=== PATIENT | male | born 1945 | race Caucasian/White ===

== ENCOUNTER 2018-06-13 12:45 | Emergency (ER) | payer MEDICARE, OTHER ==
[2018-06-13] MEDS ORDERED: MINERAL OIL 30 ML UDCUP PR ONE (13:35)
--- NOTE | 2018-06-13 13:38 | ER Document Report ---
ED Medical Screen (RME) - General Chief Complaint: Abdominal Pain Stated Complaint: ABDOMINAL PAIN Time Seen by Provider: 06/13/18 13:35 Notes: RAPID MEDICAL EVALUATION DISCLOSURE I have seen this patient as part of a Rapid Medical Evaluation and, if applicable, placed any initially appropriate orders. The patient will be seen and fully evaluated, including a full history and physical exam, by a provider (in Main ED or Fast Track) when a room becomes available. 72-year-old male here with complaints of constipation over the past 2 weeks. He states that he has been having bowel movements however they are small hard stools and he is now having some pain at his rectum. He has not tried taking any [id number] stool softeners. He does not have any abdominal pain nausea vomiting fevers chills. He does not normally get constipated however he does report having to strain on a fairly frequent basis and that this is usual for him. EXAM No abdominal TTP No low back TTP TRAVEL OUTSIDE OF THE [place] IN LAST 30 DAYS: No - Related Data Allergies/Adverse Reactions: No Known Allergies Allergy (Verified 06/13/18 12:46) Past Medical History - Immunizations Immunizations up to date: Yes Hx Diphtheria, Pertussis, Tetanus Vaccination: No Physical Exam - Vital signs Vitals: Temp Pulse Resp BP Pulse Ox 97.5 F 65 16 152/57 H 100 06/13/18 13:19 06/13/18 13:19 06/13/18 13:19 06/13/18 13:19 06/13/18 13:19 Course - Vital Signs Vital signs: Temp Pulse Resp BP Pulse Ox 97.5 F 65 16 152/57 H 100 06/13/18 13:19 06/13/18 13:19 06/13/18 13:19 06/13/18 13:19 06/13/18 13:19
[2018-06-13] MEDS ORDERED: MAGNESIUM CITRATE 296 ML BOTTLE PO ONE (14:23)
--- NOTE | 2018-06-13 14:23 | ER Document Report ---
ED General - General Chief Complaint: Abdominal Pain Stated Complaint: ABDOMINAL PAIN Time Seen by Provider: 06/13/18 13:35 TRAVEL OUTSIDE OF THE [place] IN LAST 30 DAYS: No - HPI Patient complains to provider of: 72-year-old man that presents for evaluation of difficulty moving his bowel Onset: Other - Over the last 2 days this gentleman has had difficulty in moving his bowels, he has had a couple of small pebble-like stools passed in the last day but feels as if he is unable to move a large bowel movement which seems stuck. Is not take anything to try and help with this, is never suffered from constipation in the past. Nothing is made it better or worse. Denies any fevers or chills lightheadedness chest pain diarrhea or dysuria. - Related Data Allergies/Adverse Reactions: No Known Allergies Allergy (Verified 06/13/18 12:46) Past Medical History - General Information source: Patient - Social History Smoking Status: Never Smoker Chew tobacco use (# tins/day): No Frequency of alcohol use: None Drug Abuse: None Family History: Reviewed & Not Pertinent Patient has suicidal ideation: No Patient has homicidal ideation: No Renal/ Medical History: Denies: Hx Peritoneal Dialysis - Immunizations Immunizations up to date: Yes Hx Diphtheria, Pertussis, Tetanus Vaccination: No Review of Systems - Review of Systems -: Yes All other systems reviewed and negative Physical Exam - Vital signs Vitals: Temp Pulse Resp BP Pulse Ox 97.5 F 65 16 152/57 H 100 06/13/18 13:19 06/13/18 13:19 06/13/18 13:19 06/13/18 13:19 06/13/18 13:19 Interpretation: Normal - General General appearance: Appears well, Alert - HEENT Head: Normocephalic, Atraumatic Eyes: Normal Pupils: PERRL - Respiratory Respiratory status: No respiratory distress Chest status: Nontender Breath sounds: Normal Chest palpation: Normal - Cardiovascular Rhythm: Regular Heart sounds: Normal auscultation Murmur: No - Abdominal Inspection: Normal Distension: No distension Bowel sounds: Normal Tenderness: Nontender Organomegaly: No organomegaly - Rectal Tenderness: No Stool: Other - hard stool in the vault no appreciable fecaliths, no appreciable blood or tenderness, during rectal examination stool was extracted - Back Back: Normal, Nontender - Extremities General upper extremity: Normal inspection, Nontender, Normal color, Normal ROM, Normal temperature General lower extremity: Normal inspection, Nontender, Normal color, Normal ROM, Normal temperature, Normal weight bearing. No: Jimmie's sign - Neurological Neuro grossly intact: Yes Cognition: Normal Orientation: AAOx4 [place] Coma Scale Eye Opening: Spontaneous [place] Coma Scale Verbal: Oriented [place] Coma Scale Motor: Obeys Commands [place] Coma Scale Total: 15 Speech: Normal Motor strength normal: LUE, RUE, LLE, RLE Sensory: Normal - Psychological Associated symptoms: Normal affect, Normal mood - Skin Skin Temperature: Warm Skin Moisture: Dry Skin Color: Normal Course - Re-evaluation Re-evalutation: 06/13/18 15:19 72-year-old constipated man. On examination he obviously has a fecal impaction. Digital rectal examination was utilized and stool was aggressively broken as well as extracted. Following extraction of fecal material gentleman was offered an enema, he declined the enema at this time will try move his bowels at home with the use of magnesium citrate. He will also use a stool softener moving forward to prevent return of this. - Vital Signs Vital signs: Temp Pulse Resp BP Pulse Ox 97.5 F 65 16 152/57 H 100 06/13/18 13:19 06/13/18 13:19 06/13/18 13:32 06/13/18 13:19 06/13/18 13:19 Discharge - Discharge Clinical Impression: Fecal impaction Constipation Qualifiers: Constipation type: unspecified constipation type Qualified Code(s): K59.00 - Constipation, unspecified Condition: Good Disposition: HOME, SELF-CARE Instructions: Abdominal Pain ([facility]), Laxative ([facility]), Constipation ([facility]) Additional Instructions: You were seen today in the emergency department for your constipation. You had a disimpaction performed. You have been given a laxative. Drink half of the bottle of laxative. If you do not have a bowel movement in 2 hours take the other half of the bottle. Return in case you have any fevers or chills or worsening abdominal pain. You should start taking a stool softener called MiraLAX 1 packet/day and make sure you are drinking plenty of water. Prescriptions: Magnesium Citrate [Citrate of Magnesia 296 ml Bottle] 296 ml PO DAILY #1 bottle Polyethylene Glycol 3350 [Miralax Powder 17 gm/Packet] 1 packet PO DAILY #1 pkg
[2018-06-13 15:03] VITALS: BP 132/57
== END 2018-06-13 15:17 | disposition home or self-care (01) ==
LOC: ER 12:45
DX: K59.00 Constipation, unspecified (principal)
CPT/HCPCS: 99283; J3490

== ENCOUNTER 2019-05-02 09:28 | Emergency (ER) | payer MEDICARE, OTHER ==
[2019-05-02] MEDS ORDERED: DOCUSATE SODIUM 100 MG CAPSULE BTH_EAR ONE (09:56)
--- NOTE | 2019-05-02 09:58 | ER Document Report ---
ED ENT - General Chief Complaint: Ear Pain Stated Complaint: EAR PAIN Time Seen by Provider: 05/02/19 09:50 Primary Care Provider: JOHNNY NOBLE MD [ACTIVE STAFF] - Follow up as needed Mode of Arrival: Ambulatory Information source: Patient Notes: 73-year-old male presents the ED for ringing in his ears. He states he does have mildly decreased hearing last year. He states the ringing in his ear has been for a year. He does not have any pain he does not have any other ailments he wanted his ears examined and if possible cleaned. Patient is alert oriented respirations regular and unlabored speaking in full sentences. He states he does not have a primary care doctor and does not have any medical history. TRAVEL OUTSIDE OF THE [place] IN LAST 30 DAYS: No - HPI Patient complains to provider of: Ear problem Onset: Other - 1 year Onset/Duration: Persistent Quality of pain: Other - Ringing in the ear Severity: None Pain Level: Denies Location of pain: Ears Associated symptoms: Other - Ringing in the ears Similar symptoms previously: Yes Recently seen / treated by doctor: No - Related Data Allergies/Adverse Reactions: No Known Allergies Allergy (Verified 05/02/19 09:44) Past Medical History - General Information source: Patient - Social History Smoking Status: Never Smoker Chew tobacco use (# tins/day): No Frequency of alcohol use: None Drug Abuse: None Lives with: Family Family History: Reviewed & Not Pertinent Patient has suicidal ideation: No Patient has homicidal ideation: No - Past Medical History Cardiac Medical History: Reports: Hx Hypertension Pulmonary Medical History: Reports: None EENT Medical History: Reports: None Neurological Medical History: Reports: None Endocrine Medical History: Reports: None Renal/ Medical History: Reports: None Malignancy Medical History: Reports Hx Skin Cancer GI Medical History: Reports: None Musculoskeletal Medical History: Reports Hx Arthritis Skin Medical History: Reports None Psychiatric Medical History: Reports: None Traumatic Medical History: Reports: None Infectious Medical History: Reports: None Past Surgical History: Reports: Other - skin cancer - Immunizations Immunizations up to date: Yes Hx Diphtheria, Pertussis, Tetanus Vaccination: No Review of Systems - Review of Systems Constitutional: No symptoms reported EENT: No symptoms reported. denies: Ear pain - Ringing in the ear Cardiovascular: No symptoms reported Respiratory: No symptoms reported Gastrointestinal: No symptoms reported Genitourinary: No symptoms reported Male Genitourinary: No symptoms reported Musculoskeletal: No symptoms reported Skin: No symptoms reported Hematologic/Lymphatic: No symptoms reported Neurological/Psychological: No symptoms reported -: Yes All other systems reviewed and negative Physical Exam - Vital signs Vitals: Temp Pulse Resp BP Pulse Ox 97.5 F 66 16 150/69 H 99 05/02/19 09:30 05/02/19 09:30 05/02/19 09:30 05/02/19 09:30 05/02/19 09:30 Interpretation: Normal - General General appearance: Appears well, Alert - HEENT Head: Normocephalic, Atraumatic Eyes: Normal Pupils: PERRL Ears: Normal External canal: Cerumen impaction Sinus: Normal Nasal: Normal Mouth/Lips: Normal Mucous membranes: Normal Pharynx: Normal Neck: Normal - Respiratory Respiratory status: No respiratory distress Chest status: Nontender Breath sounds: Normal Chest palpation: Normal - Cardiovascular Rhythm: Regular Heart sounds: Normal auscultation Murmur: No - Abdominal Inspection: Normal Distension: No distension Bowel sounds: Normal Tenderness: Nontender Organomegaly: No organomegaly - Back Back: Normal, Nontender - Extremities General upper extremity: Normal inspection, Nontender, Normal color, Normal ROM, Normal temperature General lower extremity: Normal inspection, Nontender, Normal color, Normal ROM, Normal temperature, Normal weight bearing. No: Jimmie's sign - Neurological Neuro grossly intact: Yes Cognition: Normal Orientation: AAOx4 Stephany Coma Scale Eye Opening: Spontaneous [place] Coma Scale Verbal: Oriented [place] Coma Scale Motor: Obeys Commands [place] Coma Scale Total: 15 Speech: Normal Motor strength normal: LUE, RUE, LLE, RLE Sensory: Normal - Psychological Associated symptoms: Normal affect, Normal mood - Skin Skin Temperature: Warm Skin Moisture: Dry Skin Color: Normal Course - Vital Signs Vital signs: Temp Pulse Resp BP Pulse Ox 97.5 F 66 16 150/69 H 99 05/02/19 09:30 05/02/19 09:30 05/02/19 09:30 05/02/19 09:30 05/02/19 09:30 Procedures - Additional Procedures other Time performed: 11:29 Additional Procedures: Other - Cerumen disimpaction bilateral Notes: 05/02/19 11:30 200 mg Colace was instilled in each ear. It was left standing for 15 minutes. The ear was then irrigated with one half peroxide one warm water and total ear was clear then the second layer was completed. Ears are no longer impacted. Patient states he still has some ringing in the ears. Patient was instructed to follow-up with ENT and given the name of an ENT to follow-up with. Discharge - Discharge Clinical Impression: Impacted cerumen of both ears Condition: Stable Disposition: HOME, SELF-CARE Additional Instructions: Cerumen Impaction The physician found a severe buildup of earwax in your ear canal, called a cerumen impaction. A large plug of wax can cause earache, decreased hearing, or itching. It can even lead to infection of the outer ear. An impaction of earwax can be removed by the physician using special instruments, or can be irrigated out using a stream of water (often a little of both is required). Some less severe impactions are removed using ear drops that dissolve wax. In the future, don't get soap in your ear canal. Soap doesn't remove wax -- it simply hardens it in place. Don't use cotton swabs. These just push the wax into large clumps, where it doesn't flow out normally. Dust and smoke also contribute to wax buildup. Earwax softening drops are available without prescription, and can be used periodically. Contact the doctor if you develop decreased hearing, earache, drainage from the ear, or severe headache. Use [id number] earwax spool cleaner to clean your ears as needed on a regular basis so you do not get an impaction. FOLLOW-UP CARE: If you have been referred to a physician for follow-up care, call the physicians office for an appointment as you were instructed or within the next two days. If you experience worsening or a significant change in your symptoms, notify the physician immediately or return to the Emergency Department at any time for re-evaluation. Forms: Elevated Blood Pressure Referrals: JOHNNY NOBLE MD [ACTIVE STAFF] - Follow up as needed
[2019-05-02 11:32] VITALS: BP 156/62
== END 2019-05-02 11:33 | disposition home or self-care (01) ==
LOC: ER 09:28
DX: H61.23 Impacted cerumen, bilateral (principal); H93.19 Tinnitus, unspecified ear; I10 Essential (primary) hypertension
CPT/HCPCS: 99282; A9270